=== PATIENT | female | born 1950 | race Caucasian/White ===

== ENCOUNTER 2023-07-24 08:25 | Inpatient (IN) | payer MEDICARE, MEDICAID ==
[~2023-07-24] VITALS: Ht 157.5 cm; Wt 91.3 kg
[~2023-07-24 08:25] MED LIST: IBU600T PO
[2023-07-24] MEDS: SODIUM CHLORIDE 0.9% 500 ML IVB ONE (09:45)
[2023-07-24 10:00] VITALS: PULSE 85; RESP 15; O2SAT 94
[2023-07-24 10:06] LABS: Basophils # (auto) 0.1 10 ^3/uL (0-0.2); Basophils % (auto) 1.1 % (0.0-2.0); Eosinophils # (auto) 0.3 10 ^3/uL (0-0.8); Eosinophils % (auto) 3.8 % (0.0-7.0); Hematocrit 40.7 % (36.0-46.0); Hemoglobin 13.4 g/dL (12.2-16.2); Lymphocytes # (auto) 1.9 10 ^3/uL (0.4-5.4); Lymphocytes % (auto) 25.1 % (10.0-50.0); Mean Corpuscular Hemoglobin 27.3 pg (28.0-32.0); Mean Corpuscular Hgb Conc. 32.9 g/dL (32.0-36.0); Mean Corpuscular Volume 83.1 fL (80.0-100.0); Monocytes # (auto) 0.5 10 ^3/uL (0-1.3); Monocytes % (auto) 6.9 % (0.0-12.0); Neutrophils # (auto) 4.7 10 ^3/uL (1.6-8.6); Neutrophils % (auto) 63.1 % (37.0-80.0); Red Cell Distribution Width 13.9 % (11.8-14.3); White Blood Cell 7.4 10^3/uL (4.4-10.8)
[2023-07-24 10:15] LABS: INR 0.98 (0.9-1.15); Partial Thromboplastin Time 27.1 SEC (24.5-34.5); Prothrombin Time 10.3 sec (9.3-11.8)
[2023-07-24 10:18] LABS: Alanine Aminotransferase 13 U/L (7-40); Albumin 4.2 g/dL (3.2-4.8); Alkaline Phosphatase 73 U/L (46-116); Anion Gap 5 (5-15); Aspartate Aminotransferase 16 U/L (13-40); BUN/Creatinine Ratio 10.5 (10.0-20.0); Blood Urea Nitrogen 10 mg/dL (9-23); Calcium 9.2 mg/dL (8.5-10.1); Carbon Dioxide 27 mmol/L (20-30); Chloride 108 mmol/L (98-107); Glucose 86 mg/dL (74-106); Sodium 140 mmol/L (136-145)
[2023-07-24 10:19] LABS: Bilirubin, Total 0.3 mg/dL (0.2-1.0)
[2023-07-24 10:53] LABS: Magnesium 2.2 mg/dL (1.6-2.6)
[2023-07-24] MEDS: SODIUM CHLORIDE 0.9% 1,000 ML IV ONE (10:57)
[2023-07-24 10:58] LABS: Urine Bacteria FEW /hpf (None Seen); Urine Blood Negative /uL (Negative); Urine Clarity HAZY (Clear); Urine Color Colorless (Yellow); Urine Protein, UAD Negative (Negative); Urine Specific Gravity 1.008 (1.001-1.035); Urine Urobilinogen Normal (Negative); Urine WBC 16 /hpf (0 - 5); Urine pH 6.5 (5.0-8.0)
[2023-07-24] MEDS: cefTRIAXone 1GM/50ML D5W 50 ML IV ONE (12:26)
[2023-07-24] MEDS ORDERED: LEVO25TA6 PO (14:21)
[2023-07-24] MEDS ORDERED: THYR60TA PO (14:21)
[2023-07-24] MEDS ORDERED: PAR20T PO (14:28)
[2023-07-24] MEDS ORDERED: ARIP1TAB7 PO (14:28)
[2023-07-24] MEDS ORDERED: HYDR-4902 PO (14:33)
[2023-07-24] MEDS ORDERED: PANT40T PO (14:33)
[2023-07-24] MEDS ORDERED: ALBUAER3 IN (14:33)
[2023-07-24] MEDS ORDERED: MONT10TA23 PO (14:33)
[2023-07-24] MEDS ORDERED: FLUT1INH6 IN (14:33)
[2023-07-24] MEDS ORDERED: SEMA2INJ3 SC (14:33)
[2023-07-24] MEDS ORDERED: MAGN400T40 OR (14:33)
[2023-07-24] MEDS ORDERED: SENN8.6T37 PO (14:33)
[2023-07-24] MEDS ORDERED: TRAZ-228 PO (14:33)
[2023-07-24] MEDS ORDERED: MIRA50TA OR (14:33)
[2023-07-24] MEDS ORDERED: ALBUTEROL SULF 2.5 MG/0.5ML(0.5%) NEB SOLN NEB PRN (15:15)
[2023-07-24] MEDS: SODIUM CHLORIDE 0.9% 1,000 ML IV SCH (15:15)
[2023-07-24] MEDS ORDERED: IPRATROPIUM BROM 0.5 MG/2.5ML INH SOL NEB PRN (15:15)
[2023-07-24] MEDS: ONDANSETRON HCL 4 MG/2 ML VIAL IV PRN (15:45)
[2023-07-24] MEDS: MORPHINE SULFATE INJ 2 MG/ml SYRG IV PRN (15:46)
[2023-07-24 16:00] VITALS: O2SAT 96
[2023-07-24] MEDS: traZODone HCL 50 MG TAB PO SCH (18:22)
[2023-07-24 18:30] VITALS: BP 137/64; PULSE 89; RESP 18; TEMP 98.3; O2SAT 96
[2023-07-24 20:00] VITALS: PULSE 81; RESP 15; O2SAT 97
[2023-07-24] MEDS: MAGNESIUM OXIDE 400 MG TAB PO SCH (20:28)
[2023-07-24] MEDS: ARIPIPRAZOLE 20 MG PO SCH (21:04)
[2023-07-24] MEDS: MIRABEGRON 50 MG PO SCH (21:04)
[2023-07-24] MEDS: ATORVASTATIN 20 MG TAB PO SCH (21:05)
[2023-07-24 21:39] VITALS: BP 103/50; PULSE 103; RESP 19; TEMP 97.5; O2SAT 96
[2023-07-24] MEDS: HYDROcodone-ACET 5/325MG TAB PO PRN (21:54)
[2023-07-25] VITALS (12 sets, daily range): BP systolic 103–139; BP diastolic 47–60; PULSE 69–113; RESP 15–20; TEMP 96.9–98; O2SAT 93–100
[2023-07-25] MEDS: ALBUTEROL SULF 2.5 MG/0.5ML(0.5%) NEB SOLN NEB PRN (04:50)
[2023-07-25] MEDS: MONTELUKAST SODIUM 10 MG TAB PO SCH (06:03)
[2023-07-25 06:10] LABS: Basophils # (auto) 0.1 10 ^3/uL (0-0.2); Basophils % (auto) 1.1 % (0.0-2.0); Eosinophils # (auto) 0.3 10 ^3/uL (0-0.8); Eosinophils % (auto) 4.3 % (0.0-7.0); Hematocrit 39.6 % (36.0-46.0); Hemoglobin 12.9 g/dL (12.2-16.2); Lymphocytes # (auto) 2.5 10 ^3/uL (0.4-5.4); Lymphocytes % (auto) 33.7 % (10.0-50.0); Mean Corpuscular Hemoglobin 27.4 pg (28.0-32.0); Mean Corpuscular Hgb Conc. 32.5 g/dL (32.0-36.0); Mean Corpuscular Volume 84.3 fL (80.0-100.0); Monocytes # (auto) 0.4 10 ^3/uL (0-1.3); Monocytes % (auto) 5.8 % (0.0-12.0); Neutrophils % (auto) 55.1 % (37.0-80.0); Red Cell Distribution Width 14.1 % (11.8-14.3); White Blood Cell 7.3 10^3/uL (4.4-10.8)
[2023-07-25 07:03] LABS: Alanine Aminotransferase 12 U/L (7-40); Albumin 3.9 g/dL (3.2-4.8); Alkaline Phosphatase 63 U/L (46-116); Anion Gap 5 (5-15); Aspartate Aminotransferase 12 U/L (13-40); BUN/Creatinine Ratio 9.4 (10.0-20.0); Bilirubin, Total 0.4 mg/dL (0.2-1.0); Blood Urea Nitrogen 9 mg/dL (9-23); Calcium 9.4 mg/dL (8.7-10.4); Carbon Dioxide 27 mmol/L (20-30); Chloride 109 mmol/L (98-107); Glucose 97 mg/dL (74-106); Potassium 4.1 mmol/L (3.5-5.1); Sodium 141 mmol/L (136-145)
[2023-07-25 07:04] LABS: Total Protein 6.5 g/dL (5.7-8.2)
[2023-07-25 07:41] LABS: Cholesterol 191 mg/dL (< 200); HDL Cholesterol 52 mg/dL (40-59); Triglycerides 107 mg/dL (< 150)
[2023-07-25 07:42] LABS: LDL Cholesterol 139 mg/dL (< 100)
[2023-07-25] MEDS: PARoxetine 20 MG TAB PO SCH (09:57)
[2023-07-25] MEDS: ASPirin 81 mg TAB PO SCH (09:57)
[2023-07-25] MEDS: THYROID 60 MG TAB PO SCH (09:59)
[2023-07-25] MEDS: PANTOPRAZOLE 40 MG TAB PO SCH ×2 (10:00→21:36)
[2023-07-25] MEDS ORDERED: MIRA50TA OR (10:37)
[2023-07-25] MEDS ORDERED: MONT-8 PO (10:37)
[2023-07-25] MEDS ORDERED: PANT40TA2 PO (10:37)
[2023-07-25] MEDS ORDERED: MAGN400T40 OR (10:37)
[2023-07-25] MEDS ORDERED: TRAZ-228 PO (10:37)
[2023-07-25] MEDS ORDERED: THYR30TA PO (10:37)
[2023-07-25] MEDS ORDERED: DOCU-265 PO (10:37)
[2023-07-25] MEDS ORDERED: LORA-622 PO (10:37)
[2023-07-25] MEDS ORDERED: LEVO50TA7 PO (10:37)
[2023-07-25] MEDS ORDERED: [UNRECOGNIZED DRUG - CODE] TOP (10:45)
[2023-07-25] MEDS ORDERED: PERCOT PO (10:46)
[2023-07-25] MEDS ORDERED: ACYC200C22 PO (10:46)
[2023-07-25] MEDS ORDERED: LORazepam 2MG/ML-1ML VIAL IV PRN (23:30)
[2023-07-26] VITALS (10 sets, daily range): BP systolic 91–124; BP diastolic 50–72; PULSE 72–92; RESP 16–20; TEMP 97.3–98.4; O2SAT 92–100
[2023-07-26] MEDS: DOCUSATE SOD 100 MG CAP PO PRN (06:19)
[2023-07-26] MEDS ORDERED: NITR-87 PO (10:55)
[2023-07-26] MEDS ORDERED: cefTRIAXone 1GM/50ML D5W 50 ML IV ONE (11:00)
[2023-07-26] MEDS: NITROFURANTOIN 100 mg CAP PO ONE (12:14)
[2023-07-26] MEDS: NITROFURANTOIN 100 mg CAP PO SCH (21:32)
[2023-07-27 07:45] VITALS: BP 106/54; PULSE 82; RESP 18; TEMP 97.5; O2SAT 94
[2023-07-27] MEDS ORDERED: cefTRIAXone 1GM/50ML D5W 50 ML IV SCH (09:00)
== END 2023-07-27 08:04 | disposition home or self-care (01) | DRG 74 ==
LOC: ER 08:25 → TELE 15:23 → TELE-WESTW 18:21
PROVIDERS: ADMIT Nurse Practitioner Family; ATTEND Internal Medicine
DX: G90.8 Other disorders of autonomic nervous system (principal); N39.0 Urinary tract infection, site not specified; M79.7 Fibromyalgia; G89.29 Other chronic pain; E66.9 Obesity, unspecified; M54.9 Dorsalgia, unspecified; M12.9 Arthropathy, unspecified; I95.9 Hypotension, unspecified; F32.A Depression, unspecified; E78.5 Hyperlipidemia, unspecified; E03.9 Hypothyroidism, unspecified; J44.9 Chronic obstructive pulmonary disease, unspecified; R03.0 Elevated blood-pressure reading, without diagnosis of hypertension; Z88.0 Allergy status to penicillin; Z88.1 Allergy status to other antibiotic agents; Z68.36 Body mass index [BMI] 36.0-36.9, adult; Z91.81 History of falling; Z87.440 Personal history of urinary (tract) infections; Z82.49 Family history of ischemic heart disease and other diseases of the circulatory system
CPT/HCPCS: 36415; 70450; 70551; 71045; 80053; 80061; 81001; 82962; 83036; 83735; 84443; 84484; 85025; 85379; 85610; 85730; 86592; 93005; 93306; 93886; 95819; 97110; 97116; 97163; 97530; G0378; J2405